=== PATIENT | female | born 1995 | race Caucasian/White ===

== ENCOUNTER 2016-08-03 11:36 | Emergency (ER) | payer OTHER ==
--- NOTE | 2016-08-03 12:00 | ER Document Report ---
ED Medical Screen (RME) - General Stated Complaint: FALL/HEAD INJURY,NAUSEA Time seen by provider: 11:52 Mode of Arrival: Ambulatory Information source: Patient Notes: 21-year-old female after her drinking alcohol on Thursday night slipped and fell and hit her right parietal posterior scalp on cement. No lose consciousness. Since then she has had a headache and nausea. She states she does not feel well. Light sensitive. I have greeted and performed a rapid initial assessment of this patient. A comprehensive ED assessment, evaluation of the patient, analysis of test results , and completion of the medical decision making process will be contacted by additional ED providers. I have consulted with the supervisory physician per [facility] Guidelines., dr. richardson - Related Data Allergies/Adverse Reactions: No Known Allergies Allergy (Verified 08/03/16 11:53) Physical Exam - Vital signs Vitals: Temp Pulse Resp BP Pulse Ox 98.4 F 87 20 132/80 H 98 08/03/16 11:42 08/03/16 11:42 08/03/16 11:42 08/03/16 11:42 08/03/16 11:42 Course - Vital Signs Vital signs: Temp Pulse Resp BP Pulse Ox 98.4 F 87 20 132/80 H 98 08/03/16 11:42 08/03/16 11:42 08/03/16 11:42 08/03/16 11:42 08/03/16 11:42
--- NOTE | 2016-08-03 12:05 | ER Document Report ---
ED General - General Chief Complaint: Head Injury without LOC Stated Complaint: FALL/HEAD INJURY,NAUSEA Time seen by provider: 12:04 Mode of Arrival: Ambulatory Information source: Patient Notes: This is a 21-year-old female that presents to the emergency room with headache, feeling dizzy and weak and somewhat nauseous. Patient states that she was about 2 AM on Thursday night, tripped and fell and hit the back of her head. She does admit to drinking alcohol at the time. She states that she had a lot of nausea and headaches yesterday and it's persisted into today. TRAVEL OUTSIDE OF THE [place] IN LAST 30 DAYS: No - HPI Onset: Other - Past 2 days Onset/Duration: Sudden Quality of pain: Achy Severity: None Pain Level: Denies Associated symptoms: denies: Chills, Fever, Shortness of breath Exacerbated by: Denies Relieved by: Denies Similar symptoms previously: No Recently seen / treated by doctor: No - Related Data Allergies/Adverse Reactions: No Known Allergies Allergy (Verified 08/03/16 11:53) Past Medical History - General Information source: Patient - Social History Smoking Status: Never Smoker Cigarette use (# per day): No Chew tobacco use (# tins/day): No Frequency of alcohol use: Social Drug Abuse: None Lives with: Spouse/Significant other Family History: None Patient has suicidal ideation: No Patient has homicidal ideation: No - Medical History Medical History: Negative Renal/ Medical History: Denies: Hx Peritoneal Dialysis Surgical Hx: Negative Review of Systems - Review of Systems Notes: Review of systems: Constitutional: Denies fever, chills. EENT: Denies ear pain, sinus tenderness, throat pain, throat swelling. Cardiovascular: Denies chest pain, palpitations, dyspnea or edema. Respiratory: Denies wheezing, cough, hemoptysis. Abdomen: Denies abdominal pain, nausea, vomiting, diarrhea. Denies BRBPR or melena. Genitourinary: Denies dysuria, pyuria, hematuria, flank pain. Musculoskeletal: denies joint pain or swelling, denies back pain. Neurologic: Denies photophobia, neck stiffness, weakness. Denies loss of bowel or bladder function. Denies saddle anesthesia. Otherwise, see H&P. Skin: Denies rash, lesions. Physical Exam - Vital signs Vitals: Temp Pulse Resp BP Pulse Ox 98.4 F 87 20 132/80 H 98 08/03/16 11:42 08/03/16 11:42 08/03/16 11:42 08/03/16 11:42 08/03/16 11:42 - Notes Notes: Physical exam: GENERAL: 21-year-old female, alert and oriented 3, no acute distress. HEAD: Atraumatic, normocephalic. EYES: Pupils equal round and reactive to light, extraocular movements intact, sclera anicteric, conjunctiva are normal. ENT: TMs normal, nares patent, oropharynx clear without exudates. Moist mucous membranes. NECK: Normal range of motion, supple without lymphadenopathy or JVD. LUNGS: Breath sounds clear to auscultation bilaterally and equal. No wheezes rales or rhonchi. HEART: Regular rate and rhythm without murmurs, rubs or gallops. ABDOMEN: Soft, normoactive bowel sounds. No tenderness to palpation. No guarding, no rebound. No masses appreciated. EXTREMITIES: Normal range of motion, no pitting or edema. No clubbing or cyanosis. NEUROLOGICAL: Cranial nerves II through XII grossly intact. Motor 5 over 5, sensory grossly intact, cerebellar (finger to nose) very good, reflexes brisk and symmetrical, Normal speech, normal gait. PSYCH: Normal mood, normal affect. SKIN: Warm, Dry, normal turgor, no rashes or lesions noted. Course - Vital Signs Vital signs: Temp Pulse Resp BP Pulse Ox 97.9 F 89 20 134/62 H 99 08/03/16 14:05 08/03/16 14:05 08/03/16 11:42 08/03/16 14:05 08/03/16 14:05 - Diagnostic Test Radiology reviewed: Image reviewed, Reports reviewed - Head CT shows no acute bleed Discharge - Discharge Clinical Impression: concussion, Pre-hypertension Condition: Stable Disposition: HOME, SELF-CARE Instructions: Concussion ([facility]) Additional Instructions: Note: See the concussion and head instruction sheet. Take Zofran for nausea as needed. Return to the emergency room for worsening headache, dizziness or any concerns he getting worse. Follow-up with your primary care doctor: Bring a copy of today's CT scan with you. Note: Your blood pressure was slightly high today. Although normal range, new classifications would place this in the "pre-hypertension" range. The only recommendations at this point is to get a repeat blood pressure when following up with your primary care doctor. Forms: Elevated Blood Pressure
[2016-08-03] MEDS ORDERED: ONDANSETRON ODT 4 MG TAB (6 TAB/DSPK) PO PRN (13:14)
[2016-08-03 14:09] VITALS: BP 134/62
== END 2016-08-03 14:10 | disposition home or self-care (01) ==
LOC: ER 11:36
DX: S06.0X9A Concussion with loss of consciousness of unspecified duration, initial encounter (principal); R03.0 Elevated blood-pressure reading, without diagnosis of hypertension; R51 Headache; R42 Dizziness and giddiness; R53.1 Weakness; R11.0 Nausea; W19.XXXA Unspecified fall, initial encounter
CPT/HCPCS: 70450; 99283